=== PATIENT | female | born 1985 | race African-American/Black ===

== ENCOUNTER 2018-01-27 22:35 | Emergency (ER) | payer BC, OTHER, MEDICAID ==
[2018-01-28] MEDS: KETOROLAC 30 MG INJ IM (01:03)
[2018-01-28 02:41] LABS: MONOTEST Negative (NEG)
== END 2018-01-28 02:00 | disposition home or self-care (01) ==
LOC: FTE 22:35
DX: J02.9 Acute pharyngitis, unspecified (principal)
CPT/HCPCS: 81025; 86308; 87880; 96372; 99284-25